=== PATIENT | female | born 1975 | race American Indian/Alaskan Native ===

== ENCOUNTER 2018-11-24 15:20 | Emergency (ER) | payer OTHER ==
[2018-11-24 15:36] VITALS: BP 113/75
[2018-11-24] MEDS ORDERED: TORADOL IM ONE (15:36)
--- NOTE | 2018-11-24 15:43 | Emergency Department Report ---
Chief Complaint: Back Pain/Injury Stated Complaint: CHRONIC BACK PAIN Time Seen by Provider: 11/24/18 15:34 - HPI History of Present Illness: 43 y/o female comes in for chronic back pain and sciatica. Taking Ibuprofen and flexeril. No recent trauma. - ROS Review of Systems: Chronic back pain. No recent trauma. - Exam Vital Signs: Vital Signs 11/24/18 15:35 Temperature 98.3 F Pulse Rate 73 Respiratory 16 Rate Blood Pressure 113/75 O2 Sat by Pulse 99 Oximetry Physical Exam: patient i axo times 3 MSE screening note: Focused history and physical exam performed. Due to findings the following was ordered: Patient will be given toradol 30mg IM. and referred to her PCP. Patient encourage to continue with Ibuprofen. ED Disposition for MSE Clinical Impression: Chronic low back pain with bilateral sciatica Qualifiers: Back pain laterality: unspecified Qualified Code(s): M54.41 - Lumbago with sciatica, right side; M54.42 - Lumbago with sciatica, left side; G89.29 - Other chronic pain Disposition: - TO HOME OR SELFCARE Is pt being admited?: No Does the pt Need Aspirin: No Condition: Stable Additional Instructions: Take your pain medications as prescribed by your provider. Follow up with your Provider. Referrals: LAINE FOSTER MD [Primary Care Provider] - 3-5 Days Your,Provider [Other] - 3-5 Days Forms: Work/School Release Form(ED)
== END 2018-11-24 16:00 | disposition home or self-care (01) ==
LOC: ED 15:20
DX: M54.41 Lumbago with sciatica, right side (principal); M54.42 Lumbago with sciatica, left side; G89.29 Other chronic pain
CPT/HCPCS: 96372; 99282; J1885

== ENCOUNTER 2019-01-07 09:20 | Outpatient (CLI) | payer OTHER ==
--- NOTE | 2019-01-07 14:32 | Mammography Report ---
DIGITAL SCREENING MAMMOGRAM WITH CAD, 01/07/2019 INDICATION: Baseline screening mammography. TECHNIQUE: Digital bilateral 2D mammography was obtained in the craniocaudal and mediolateral obliq ue projections. This examination was interpreted with the benefit of Computer-Aided Detection analysi s. COMPARISON: None. FINDINGS: Breast Density: The breasts are heterogeneously dense, which may obscure small masses. Bilateral parenchymal asymmetries require additional imaging. No architectural distortion or suspicio us calcifications. IMPRESSION: Bilateral asymmetries requiring additional imaging. Recommend recall for bilateral spot c ompression views and bilateral breast ultrasound if needed. Follow up recommendation: Special View: Spot Category 0: Incomplete. Needs additional imaging evaluation and/or prior mammograms for comparison. A "normal" or negative report should not discourage follow up or biopsy of a clinically significant f inding. A written summary of these findings will be mailed to the patient. The patient will be entered into a mammography reporting system which will generate a reminder letter for the patient's next appointmen t at the appropriate interval. The [employer] recommends yearly mammograms starting at age 40 and continuing as l faizan as a woman is in good health. Breast MRI is recommended for women with an approximate 20-25% or greater lifetime risk of breast cancer, including women with a strong family history of breast or ova christina cancer or who have been treated for Hodgkin's disease. Signer Name: Reese Sarkar MD Signed: 01/07/2019 2:27 PM Workstation Name: [id number]
== END 2019-01-07 09:21 | disposition home or self-care (01) ==
LOC: MAMMO 09:20
PROVIDERS: ATTEND Internal Medicine
DX: Z12.31 Encounter for screening mammogram for malignant neoplasm of breast (principal)
CPT/HCPCS: 77067

== ENCOUNTER 2019-08-17 10:38 | Outpatient (CLI) | payer OTHER ==
--- NOTE | 2019-08-17 12:13 | Mammography Report ---
DIGITAL SCREENING MAMMOGRAM WITH CAD, 08/17/2019 INDICATION: Routine screening mammography. TECHNIQUE: Digital bilateral 2D mammography was obtained in the craniocaudal and mediolateral obliq ue projections. This examination was interpreted with the benefit of Computer-Aided Detection analysi s. COMPARISON: 01/07/2019 FINDINGS: Breast Density: The breasts are extremely dense, which lowers the sensitivity of mammography. There is no evidence of dominant mass, suspicious calcifications or architectural distortion in eithe r breast. Please note that the patient was recalled from a screening mammogram on 01/07/2019. She did not return for additional spot compression views at that time. Though spot compression views were obtained on mel kyle's visit, which demonstrate that the asymmetries in question in the right breast do not persist w ith spot compression. IMPRESSION: Follow up recommendation: Routine yearly BI-RADS Category 1: Negative. A "normal" or negative report should not discourage follow up or biopsy of a clinically significant f inding. A written summary of these findings will be mailed to the patient. The patient will be entered into a mammography reporting system which will generate a reminder letter for the patient's next appointmen t at the appropriate interval. The [employer] recommends yearly mammograms starting at age 40 and continuing as l faizan as a woman is in good health. Breast MRI is recommended for women with an approximate 20-25% or greater lifetime risk of breast cancer, including women with a strong family history of breast or ova christina cancer or who have been treated for Hodgkin's disease. Signer Name: Aniyah Bauer MD Signed: 08/17/2019 12:08 PM Workstation Name: [id number]
== END 2019-08-17 10:39 | disposition home or self-care (01) ==
LOC: MAMMO 10:38
PROVIDERS: ATTEND Internal Medicine
DX: R92.8 Other abnormal and inconclusive findings on diagnostic imaging of breast (principal)
CPT/HCPCS: 77066; 77067